=== PATIENT | male | born 2000 | race Caucasian/White ===

== ENCOUNTER 2024-02-12 11:23 | Emergency (ER) | payer OTHER, SELFPAY ==
[2024-02-12 11:23] VITALS: BMI 18.2
[2024-02-12 11:27] VITALS: BP 122/79
--- NOTE | 2024-02-12 11:28 | ED.PDOC.TRB ---
ED Provider Triage
-
24-year-old male otherwise healthy presents with a weeks worth of left-sided facial/nasal swelling. Denies any drainage. History of similar infection around the left eye that required surgery. Evaluated in triage. Consider abscess. May need
drainage. HIstory of WPW.
FUrther exam: Swollen area left maxillary area and adjacent to the left side of nose. Question abscess versus tear duct issue had similar issue in the past. CT face ordered.
[2024-02-12 11:47] LABS: % Basophils 0.4 % (0-2); % Eosinophils 1.8 % (0-6); % Immature Granulocytes 0.2 % (0-0.5); % Lymphocytes 15.5 % (20.5-51.1); % Monocytes 6.8 % (1.7-9.3); % Neutrophils 75.3 % (42.2-75.2); Absolute Eosinophils 0.2 10^3/uL (0-0.7); Absolute Lymphocytes 1.3 10^3/uL (1.2-3.4); Absolute Monocytes 0.6 10^3/uL (0.1-0.6); Absolute Neutrophils 6.2 10^3/uL (1.4-6.5); Hemoglobin 13.5 g/dL (13.0-18.0); Mean Corp Hgb Conc. 33.8 g/dL (33.0-37.0); Mean Corpuscular Hgb 33.8 pg (27.0-31.0); Mean Platelet Volume 9.5 fL (7.4-10.4); Nucleated Red Blood Cells % 0 % (-); Platelet Count 233 10^3/uL (130-400); Red Cell Dist. Width 14.2 % (11.5-14.5); White Blood Cell Count 8.2 10^3/uL (4.8-10.8)
[2024-02-12 12:00] LABS: ALT (SGPT) 11 U/L (0-50); AST (SGOT) 19 U/L (17-59); Albumin 4.4 g/dl (3.5-5.0); Alkaline Phosphatase 98 U/L (38-126); Blood Urea Nitrogen 11 mg/dl (9-20); Calcium 9.4 mg/dl (8.4-10.2); Carbon Dioxide 28 mmol/L (22-30); Chloride 103 mmol/L (98-107); Glucose 83 mg/dl (70-99); Potassium 4.7 mmol/L (3.5-5.1); Sodium 141 mmol/L (135-145); Total Bilirubin 1.4 mg/dl (0.2-1.3); Total Protein 6.8 g/dl (6.3-8.2); eGFR > 60.00
[2024-02-12 14:00] VITALS: BP 112/84
--- NOTE | 2024-02-12 14:29 | ED.GENMED ---
History of Present Illness
General
Chief Complaint: Facial Problem
Source: patient
Exam Limitations: none
Time Seen by Provider: 02/12/24 12:52
Nursing documentation reviewed up to this point in time: agreed with
History of Present Illness
History of Present Illness:
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
has had a dactrocystitis 06 07 sent to [facility], pt ended up having procedure to remove the duct but his facial swelling was much worse then
started 1 week ago in the same location just lateral to the nose and slightly extending toward the eye, no eye pain with movement
no fever/chills
no drainage
no sinus congestion
Past History
Past History
ED Past Medical History: None
Patient has exhibited threatening behavior?: No
PSI?: No
Social History
Tobacco: Vaping
Family History
Family History: Negative Early CAD
Review of Systems
Review of Systems
Allergies reviewed?: Yes
All Other Systems: Not applicable
Phy Exam
Physical Exam
Physical Exam:
GENERAL: Alert , in no apparent distress
head:
left side of the nose with fluctuant swelling/abscess 3 x 2 cm with some faint erythema extending just to the corner of the eye region
no real soft tissue swelling of the eye
EYE: pupils equal and reactive, eoms normal
NECK: Supple
ENT: o/p clr, mmm.
CARDIAC: Regular rate and rhythm .
LUNGS: Clear breath sounds bilaterally, no acute respiratory distress, no wheezes/rales/rhonchi
ABDOMEN: Soft, without focal tenderness, no r/g, no cvat, normal bowel sounds
NEUROLOGICAL: Alert and oriented, no focal neuro deficits
SKIN: Warm and dry, skin intact. erythema left facial abscess, minimal
MUSCULOSKELETAL: No edema, well perfused. neg shanna's sign
PSYCH: Normal and appropriate interaction.
Course
Orders/Labs/Results
Orders:
Orders
02/12/24 11:31
CT Facial Bones W/ Iv Contrast Urgent
Comment:
Reason For Exam: left facial swelling
02/12/24 11:35
Complete Blood Count/With Diff Urgent
Comprehensive Metabolic Panel Urgent
02/12/24 14:35
Ampicillin/Sulbactam 3 G [Unasyn] 3 gm 0.9% Sodium Chloride 100 ml [Nss] 100 ml IV NOW
02/12/24 14:53
Wound Culture [Wound/Abscess/Other Culture] Urgent
MARIO ALBERTO Source: Abscess
Specimen Description:
Date Specimen was Collected: 02/12/24
Time Specimen was Collected: 14:33
Abnormal Lab Results
02/12/24
11:35
RBC 4.00 L 10^6/uL
(4.70-6.10)
MCV 100.0 H fL
(80.0-94.0)
MCH 33.8 H pg
(27.0-31.0)
Neutrophils % 75.3 H %
(42.2-75.2)
Lymphocytes % 15.5 L %
(20.5-51.1)
Total Bilirubin 1.4 H mg/dl
(0.2-1.3)
02/12/24 11:35
02/12/24 11:35
Vital Signs
Initial and Last Documented VS:
Initial Vital Signs
Temp Pulse Resp BP Pulse Ox
97.9 F 95 18 122/79 97
02/12/24 11:27 02/12/24 11:27 02/12/24 11:27 02/12/24 11:27 02/12/24 11:27
Last Documented Vital Signs
Temp Pulse Resp BP Pulse Ox
97.9 F 81 16 112/84 99
02/12/24 11:27 02/12/24 14:00 02/12/24 14:00 02/12/24 14:00 02/12/24 14:00
Procedures
Incision/Drainage/Joint Aspiration
Left Face:
Anethesia: 1% Lidocaine with Epi
Preparation: cleaned with alcohol wipe
Type of procedure: incise
Nature of site: abscess
Description of abscess: less than 3cm
Loculations broken up: Yes
How much fluid was obtained?: small amount
Fluid description: purulent
Treatment: left open for drainage
MDM/Problems Addressed
Differential Diagnosis Includes:
cellulitis, abscess, sinusitis, preseptal cellulitis
MDM/Problems Addressed:
24 y/o M
with previous facial cellulitlis extending into the eye region [facility] [place]
here with similar area sweling lateral to his left nose with only minimal swelling this time, some overlying erythema, but no swelling extending to eye
normal eoms
exam not c/w orbital cellulitis
but he does have flucatuant facial abscess
labs appreciated, normalw bc
ct sohws cellulitis with small abscess
chronic sinusitis
pt had I&D of the lef tnostril region and large amount of pus drained
covered with bandaid
unasyn, cultured --> augmentin
*Critical Care Note
Total Time (30-74mins, 75-104mins- exclusive of procedures): Not Applicable
ED Attending Note
-
Portions of this chart may have been created with voice recognition software.� Occasional wrong word or��sound alike� substitutions may have occurred due to the inherent limitations of voice recognition software.
Discharge Plan
Departure
Patient Disposition: Home (Routine Discharge)
Date of Disposition: 02/12/24
Time of Disposition: 15:11
Patient with high blood pressure during this ER visit?: No
Condition: Fair
Covid-19: Not Applicable
Discharge Problem:
Cellulitis of face, Abscess of face
Instructions: Abscess Incision and Drainage (DC), Cellulitis (Skin Infection), Adult (DC)
Prescriptions:
New
amoxicillin-pot clavulanate 875-125 mg tablet
1 tab PO Q12H Qty: 20 0RF
Referrals:
Yris James MD [Family Provider] -
Prabhjot Caceres MD [Active] - Follow up in 1 week (ent)
Activity Restrictions/Additional Instructions:
YOUR CT SCAN SHOWED AN ABSCESS AND SOME FACIAL CELLULITIS
WE GAVE YOU A DOSE OF IV ANTIBIOTICS AND NOW YOU NEED TO TAKE AUGMENTIN STARTING TONIGHT TWICE A DAY FOR 10 DAYS
USE A PROBIOTIC WHILE ON THIS MEDICATION
APPLY WARM COMPRESSES OFF AND ON TO YOUR FACE UNTIL THE AREA HEALS
WE WILL CALL YOU IF THE ANTIBIOTICS NEED TO BE CHANGED
RETURN FOR ANY CONCERNS, LIKE EXTENSION INTO YOUR EYE, EYE PAIN FEVER, ETC
OTHERWISE SEE EAR NOSE AND THROAT, YOU MAY NEED A CYST REMOVED FROM THAT AREA.
Interventions
Interventions:
*Risk Screen - Suicide Last Done: 02/12/24 12:45
*General Assessment Last Done: 02/12/24 12:45
*Neglect/Abuse Screening Last Done: 02/12/24 12:45
ED- Fall Risk Assessment Last Done: 02/12/24 12:45
*ED COVID-19 Vaccine History Last Done: 02/12/24 12:45
*Nursing Disposition Last Done: 02/12/24 15:14
ED- Neurological Assessment Last Done: 02/12/24 12:45
ED-Skin Assessment Last Done: 02/12/24 12:45
Discharge Date and Time
Discharge Date/Time: 02/12/24 15:15
Print Language: [place] CITIZ[place]
[2024-02-12] MEDS: UNASYN IV (14:54)
== END 2024-02-12 15:15 | disposition home or self-care (01) ==
LOC: EMR 11:23
PROVIDERS: Physician Assistant; EMERGENCY PHYSICIAN Student in an Organized Health Care Education/Training Program; FAMILY PHYSICIAN Student in an Organized Health Care Education/Training Program
DX: L03.211 Cellulitis of face (principal); L02.01 Cutaneous abscess of face; J32.9 Chronic sinusitis, unspecified; F17.290 Nicotine dependence, other tobacco product, uncomplicated
CPT/HCPCS: 99284; 96365; 10060; 70487; 80053; 85025; 87070; 87205; Q9967

== ENCOUNTER 2024-05-21 17:17 | Emergency (ER) | payer OTHER, SELFPAY ==
[2024-05-21 18:00] VITALS: BP 125/74
[2024-05-21 22:06] VITALS: BP 122/86; BMI 24.5
--- NOTE | 2024-05-21 22:57 | ED.GENMED ---
History of Present Illness
General
Chief Complaint: Eye Problems
Time Seen by Provider: 05/21/24 22:52
History of Present Illness
History of Present Illness:
TIME OF INITIAL ENCOUNTER: 11 PM
HPI: Patient has history of dacryocystitis. In the past he was manage at [facility]. More recently, he was here and had a drainage performed at bedside in the emergency department as the location of the abscess was lower than typical for
dacryocystitis. He is requesting incision and drainage again. He states the clindamycin has helped him in the past.
EXAM:
GENERAL: Well appearing in no distress
HEENT: There is a rather large 3 cm x 2 cm abscess inferior to the medial canthus of the left eye with overlying erythema
NEUROLOGIC: Excellent strength all extremities, no obvious coordination deficits
PSYCHIATRIC: Appropriate mental status, normal insight and judgement
EXTREMITIES: Nontender, no edema, moves all extremities equally
SKIN: As above
NUMBER AND COMPLEXITY OF PROBLEMS ADDRESSED AT THE ENCOUNTER
� Chronic conditions affecting care: WPW
� Acute Exacerbation and/or Progression of Chronic Illness: This is an acute but recurring problem
� Differential Diagnosis includes: Beard cystitis, cellulitis, facial abscess
AMOUNT AND/OR COMPLEXITY OF DATA TO BE REVIEWED AND ANALYZED
� I performed an independent evaluation of and my interpretation is:
EKG:
CT:
X-rays:
Laboratory Studies:
Other:
� Review of other/old records: I reviewed ER notes from last 2 visits, micro wound culture grew mixed belinda
� Clinical information was obtained by an independent historian: I spoke to the brother at bedside
� Prescriptions/Medications Considered but not given:
� Further testing considered but not performed: No clear indication for imaging or lab work at this time
RISK OF COMPLICATIONS AND/OR MORBIDITY OR MORTALITY OF PATIENT MANAGEMENT
� Social determinants of health affecting care: Lives at home
� Discussion with other providers:
� Escalation of care including admission/observation vs risk of discharge considered: Incised the area of concern and a moderate pus was removed. He states what 'what we given the past' did not work therefore I used what he
states worked for him in the past which was clindamycin. I also recommended that he try Hibiclens solution when he showers.
ANY OTHER UPDATES:
Past History
Past History
ED Past Medical History: None
Patient has exhibited threatening behavior?: No
PSI?: No
Social History
Tobacco: Vaping
Family History
Family History: Negative Early CAD
Phy Exam
Physical Exam
Physical Exam:
See HPI
Course
Orders/Labs/Results
Orders:
Orders
05/21/24 23:09
Clindamycin HCl [Cleocin] 300 mg PO NOW STA
05/21/24 23:10
Wound Culture [Wound/Abscess/Other Culture] Urgent
MARIO ALBERTO Source: Abscess
Specimen Description:
Date Specimen was Collected: 05/21/24
Time Specimen was Collected: 23:12
Comment: L face
Vital Signs
Initial and Last Documented VS:
Initial Vital Signs
Temp Pulse Resp BP Pulse Ox
36.8 C 103 16 125/74 100
05/21/24 18:00 05/21/24 18:00 05/21/24 18:00 05/21/24 18:00 05/21/24 18:00
Last Documented Vital Signs
Temp Pulse Resp BP Pulse Ox
36.8 C 72 18 122/86 99
05/21/24 18:00 05/21/24 22:06 05/21/24 22:06 05/21/24 22:06 05/21/24 22:08
Procedures
Incision/Drainage/Joint Aspiration
Left Face:
Anethesia: 1% Lidocaine with Epi
Type of procedure: incise
Nature of site: abscess
Description of abscess: greater than 3cm
How much fluid was obtained?: small amount
Fluid description: purulent
Treatment: left open for drainage
Additional information:
Patient gave verbal consent to do the procedure
*Critical Care Note
Total Time (30-74mins, 75-104mins- exclusive of procedures): Not Applicable
ED Attending Note
-
Portions of this chart may have been created with voice recognition software.� Occasional wrong word or��sound alike� substitutions may have occurred due to the inherent limitations of voice recognition software.
Discharge Plan
Departure
Patient Disposition: Home (Routine Discharge)
Date of Disposition: 05/21/24
Time of Disposition: 23:10
Patient with high blood pressure during this ER visit?: Yes
Discharge Problem:
Abscess of face
Prescriptions:
New
clindamycin HCl 300 mg capsule
300 mg PO TID 7 Days Qty: 21 0RF
No Action
amoxicillin-pot clavulanate 875-125 mg tablet
1 tab PO Q12H Qty: 20 0RF
Referrals:
Yris James MD [Primary Care Provider] -
Activity Restrictions/Additional Instructions:
Next dose of antibiotics tomorrow morning. I recommend that you use chlorhexidine/Hibiclens rinse every day when you shower to help prevent infections. A wound culture is pending.
Interventions
Interventions:
*Risk Screen - Suicide Last Done: 05/21/24 22:08
*General Assessment Last Done: 05/21/24 22:08
*Neglect/Abuse Screening Last Done: 05/21/24 22:08
ED- Fall Risk Assessment Last Done: 05/21/24 22:08
*ED COVID-19 Vaccine History Last Done: 05/21/24 22:08
Discharge Date and Time
Print Language: LAO
[2024-05-21] MEDS: CLEOCIN 300 MG PO (23:18)
== END 2024-05-21 23:45 | disposition home or self-care (01) ==
LOC: EMR 17:17
PROVIDERS: EMERGENCY PHYSICIAN Emergency Medicine; PRIMARYCARE PHYSICIAN Student in an Organized Health Care Education/Training Program
DX: L02.01 Cutaneous abscess of face (principal); F17.290 Nicotine dependence, other tobacco product, uncomplicated
CPT/HCPCS: 99282; 10060; 87070; 87205

== ENCOUNTER 2024-05-25 10:54 | Emergency (ER) | payer OTHER, SELFPAY ==
[2024-05-25 10:56] VITALS: BP 123/79
--- NOTE | 2024-05-25 11:21 | ED.GENMED ---
History of Present Illness
General
Chief Complaint: Eye Problems
Time Seen by Provider: 05/25/24 11:03
History of Present Illness
History of Present Illness:
24-year-old male presents to the emergency room evaluation of a left facial abscess. Has a history of dacryocystitis in 2022 that was treated at [facility] with removal of the left medial tear duct. Has had multiple recurrent abscesses to this
location since. Denies any photophobia or vision changes. No fevers or chills. Did have I&D performed in this hospital several days ago and started on clindamycin but feels he is not improving.
Past History
Past History
ED Past Medical History: None
Patient has exhibited threatening behavior?: No
PSI?: No
Social History
Tobacco: Vaping
Family History
Family History: Negative Early CAD
Review of Systems
Review of Systems
Allergies reviewed?: Yes
All Other Systems: ROS reviewed and negative except as documented in HPI and ROS
Phy Exam
Physical Exam
Physical Exam:
GEN: Well appearing, NAD, WDWN
HEENT: Oral mucosa moist, no scleral icterus. 3 cm x 0.5 cm fluctuant abscess just medial to the medial canthus of the left eye. Extraocular motion intact, normal pupillary response to light with no pain
Cardiac: Regular rate
Lung: No respiratory distress, no tachypnea
MSK: No gross deformity or injuries
Skin: Good color, no pallor or jaundice, no rashes
Neuro: AO x3, moves all extremities freely
Psych: Calm, cooperative
Course
Orders/Labs/Results
Orders:
Orders
05/25/24 11:28
Wound Culture [Wound/Abscess/Other Culture] Urgent
MARIO ALBERTO Source: Face
Specimen Description: Left
Date Specimen was Collected: 05/25/24
Time Specimen was Collected: 11:25
Vital Signs
Initial and Last Documented VS:
Initial Vital Signs
Temp Pulse Resp BP Pulse Ox
99.0 F 86 16 123/79 98
05/25/24 10:56 05/25/24 10:56 05/25/24 10:56 05/25/24 10:56 05/25/24 10:56
Last Documented Vital Signs
Temp Pulse Resp BP Pulse Ox
99.0 F 86 16 123/79 98
05/25/24 10:56 05/25/24 10:56 05/25/24 10:56 05/25/24 10:56 05/25/24 10:56
Procedures
Incision/Drainage/Joint Aspiration
Left Face:
Anethesia: 1% Lidocaine with Epi
Preparation: cleaned with Betadine
Type of procedure: incise and drain
Nature of site: abscess
Description of abscess: greater than 3cm
Loculations broken up: Yes
How much fluid was obtained?: small amount
Fluid description: purulent and bloody
Treatment: left open for drainage
MDM/Problems Addressed
MDM/Problems Addressed:
Culture sent, will continue clindamycin until results of cultures. Good response to I&D today. No clinical signs of orbital cellulitis or retrobulbar abscess
*Critical Care Note
Total Time (30-74mins, 75-104mins- exclusive of procedures): Not Applicable
ED Attending Note
-
Portions of this chart may have been created with voice recognition software.� Occasional wrong word or��sound alike� substitutions may have occurred due to the inherent limitations of voice recognition software.
Discharge Plan
Departure
Patient Disposition: Home (Routine Discharge)
Date of Disposition: 05/25/24
Time of Disposition: 11:23
Patient with high blood pressure during this ER visit?: No
Discharge Problem:
Abscess of face
Instructions: Abscess Incision and Drainage (DC)
Prescriptions:
No Action
amoxicillin-pot clavulanate 875-125 mg tablet
1 tab PO Q12H Qty: 20 0RF
clindamycin HCl 300 mg capsule
300 mg PO TID 7 Days Qty: 21 0RF
Activity Restrictions/Additional Instructions:
Continue your antibiotics as prescribed. Will call you if the culture result warrants any change to your medication
Warm compresses and warm showers are beneficial to allow for further drainage
Interventions
Interventions:
*Risk Screen - Suicide Last Done: 05/25/24 11:13
*General Assessment Last Done: 05/25/24 11:13
*Neglect/Abuse Screening Last Done: 05/25/24 11:13
ED- Fall Risk Assessment Last Done: 05/25/24 11:13
*ED COVID-19 Vaccine History Last Done: 05/25/24 11:13
*Nursing Disposition Last Done: 05/25/24 11:40
Discharge Date and Time
Discharge Date/Time: 05/25/24 11:41
Print Language: [place]ISH
== END 2024-05-25 11:41 | disposition home or self-care (01) ==
LOC: EMR 10:54
PROVIDERS: EMERGENCY PHYSICIAN Emergency Medicine; FAMILY PHYSICIAN Student in an Organized Health Care Education/Training Program
DX: L02.01 Cutaneous abscess of face (principal); F17.290 Nicotine dependence, other tobacco product, uncomplicated
CPT/HCPCS: 99282; 10060; 87070; 87205

== ENCOUNTER 2024-06-12 15:54 | Emergency (ER) | payer OTHER, SELFPAY ==
[2024-06-12 16:07] VITALS: BP 125/83
--- NOTE | 2024-06-12 20:36 | ED.GENMED ---
History of Present Illness
<Hoang Benites DO, Resident - Last Filed: 06/12/24 21:31>
General
Chief Complaint: Skin Problem
Source: patient and records
Time Seen by Provider: 06/12/24 18:52
History of Present Illness
History of Present Illness:
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 Patient reports
he had not had any abscesses on the right side previously. Previously patient has had multiple, 5-6 recurrent abscesses of the left sided medial tear duct. Patient reports he has not followed up with [facility] for removal of a drain placed in the
left medial tear duct. Patient does report he has a follow-up with [facility] coming up this Friday. He believes this is likely the nidus for these recurrent infections he has been treated with multiple antibiotics. Previously was treated with
clindamycin, Augmentin, he completed these antibiotics and developed a abscess on the right side of his face this time. Recently his primary care provider started him on a course of oral doxycycline for this. Patient notes that his abscess is not
going away and he presented to the emergency department for a incision and drainage.
Past History
<Hoang Benites DO, Resident - Last Filed: 06/12/24 21:31>
Past History
ED Past Medical History: None
Patient has exhibited threatening behavior?: No
PSI?: No
Social History
Tobacco: Vaping
Family History
Family History: Negative Early CAD
Review of Systems
<Hoang Benites DO, Resident - Last Filed: 06/12/24 21:31>
Review of Systems
Constitutional: Reports no symptoms
EENT: Reports other (Right sided eye abscess, stinging pain. No painful eye movements, no photophobia, no pain with vision)
Respiratory: Reports no symptoms
Cardiac: Reports no symptoms
ABD/GI: Reports no symptoms
Skin: Reports no symptoms
Neurological: Reports no symptoms
Phy Exam
<Hoang Benites DO, Resident - Last Filed: 06/12/24 21:31>
General Physical Exam
General Presentation: well appearing
ENT Exam
ENT Exam: other (Red, fluctuant and mobile mass present on the right medial tear duct. )
Eye Exam
Eye Exam: conjunctiva normal, visual acuity normal and visual king normal
Cardiovascular Exam
Cardiovascular Exam: regular rate/rhythm, no edema and no murmur
Gastrointestinal Exam
Gastrointestinal Exam: non tender, soft and non distended
Skin Exam
Skin Exam: tenderness (Tenderness to palpation of right sided tear duct abscess.)
Course
<Hoang Benites DO, Resident - Last Filed: 06/12/24 21:31>
Vital Signs
Initial and Last Documented VS:
Initial Vital Signs
Temp Pulse Resp BP Pulse Ox
98.3 F 96 20 125/83 99
06/12/24 16:07 06/12/24 16:07 06/12/24 16:07 06/12/24 16:07 06/12/24 16:07
Last Documented Vital Signs
Temp Pulse Resp BP Pulse Ox
98.3 F 96 20 125/83 99
06/12/24 16:07 06/12/24 16:07 06/12/24 16:07 06/12/24 16:07 06/12/24 16:07
<Christina Mann MD - Last Filed: 06/12/24 21:29>
Vital Signs
Initial and Last Documented VS:
Initial Vital Signs
Temp Pulse Resp BP Pulse Ox
98.3 F 96 20 125/83 99
06/12/24 16:07 06/12/24 16:07 06/12/24 16:07 06/12/24 16:07 06/12/24 16:07
Last Documented Vital Signs
Temp Pulse Resp BP Pulse Ox
98.3 F 96 20 125/83 99
06/12/24 16:07 06/12/24 16:07 06/12/24 16:07 06/12/24 16:07 06/12/24 16:07
Procedures
<Hoang Benites DO, Resident - Last Filed: 06/12/24 21:31>
Incision/Drainage/Joint Aspiration
Right medial tear duct:
Anethesia: 1% Lidocaine with Epi
Preparation: cleaned with Betadine
Type of procedure: incise and drain
Nature of site: abscess
Description of abscess: less than 3cm
Loculations broken up: Yes
How much fluid was obtained?: small amount
Fluid description: purulent and serosanguinous
Treatment: packed with gauze
<Hoang Benites DO, Resident - Last Filed: 06/12/24 21:31>
MDM/Problems Addressed
Differential Diagnosis Includes:
Tear duct abscess, immune deficiency
MDM/Problems Addressed:
24-year-old male with multiple recurrent tear duct abscesses presents for recurrent abscess. Previously abscesses have been the left side, this 1 is on the right side
Patient was seen at [facility] in 2022 where he had his left medial tear duct removed and had a drain placed. Patient was supposed to follow-up with [facility] but never did. He has an appointment to follow-up with them on Friday
Multiple ED admissions for incision and drainage of abscesses
Multiple courses of antibiotics, patient was previously on clindamycin, Augmentin and most recently doxycycline. Patient completed a course of clindamycin and subsequently developed a right sided abscess. He was started on doxycycline
approximately 5 days ago per his primary care provider
Tender, fluctuant, erythematous mass present on right sided medial tear duct.
Patient has full range of motion of the eyes, no pain with eye movement, no photophobia, no change in vision. No headache, no fever, no chills
No concern for orbital cellulitis or spread to the sphenoid sinus
Incision and drainage performed emergency department. Local provided with 1% lidocaine with epi. Abscess was opened with a scalpel, pus was drained and blunt dissection was performed to break up loculations. Wound was irrigated with normal
saline. Wound was packed with gauze and left open.
Instructions were given to patient regarding proper wound care. Stressed importance of follow-up with [facility] on Friday
Discontinue doxycycline, replaced with clindamycin. Clindamycin dose 300 mg 4 times daily by mouth for 7 days. Dose was transmitted to pharmacy, instructions given to patient. Warned about risk for C. difficile and encouraged discontinuation of
clindamycin if he develops severe watery diarrhea
Stressed importance of follow-up with his primary care provider and [facility] for definitive management. Patient stable for discharge. Encouraged return if abscess returns, severe headache, pain with ocular movement
<Hoang Benites DO, Resident - Last Filed: 06/12/24 21:31>
*Critical Care Note
Total Time (30-74mins, 75-104mins- exclusive of procedures): Not Applicable
ED Attending Note
<Hoang Benites DO, Resident - Last Filed: 06/12/24 21:31>
-
Portions of this chart may have been created with voice recognition software.� Occasional wrong word or��sound alike� substitutions may have occurred due to the inherent limitations of voice recognition software.
<Christina Mann MD - Last Filed: 06/12/24 21:29>
ED Attending Note
Patient seen and examined by attending physician: Yes
I performed the substantive portion of visit, reviewed & personally made and approve the management plan that is documented in note by myself or JITENDRA.: Yes
ED Attending Note:
24-year-old male with a history of recurrent superficial abscesses in the periorbital area presents with a right infraorbital abscess that began a few days ago despite being started on doxycycline. He denies fever, chills, active drainage, visual
changes, eye discharge, or other complaints. Patient has a appoint with his progressive care manager on Friday. On exam, there is a small fluctuant area in the right infraorbital area not extending to the tarsal plate or tear duct, with associated
redness and warmth, no open area. Long discussion with patient regarding poor Optho follow-up in the past and importance of him seeing his doctor on Friday which he agrees with and promises to do. In the interim, I&D was performed which
expressed purulent discharge. Exam not consistent with septal cellulitis, EOMI, no photophobia, no pain with extraocular movements, no proptosis, no fever, etc. etc. Discussed with patient to follow-up and reasons return to the ER
Discharge Plan
Departure
Patient Disposition: Home (Routine Discharge)
Date of Disposition: 06/12/24
Time of Disposition: 21:10
Patient with high blood pressure during this ER visit?: Yes
Condition: Good
Discharge Problem:
Abscess
Instructions: Wound Care (DC), BLOOD PRESSURE, Skin Abscess
Prescriptions:
New
clindamycin HCl 300 mg capsule
300 mg PO QID 7 Days Qty: 28 0RF
No Action
amoxicillin-pot clavulanate 875-125 mg tablet
1 tab PO Q12H Qty: 20 0RF
clindamycin HCl 300 mg capsule
300 mg PO TID 7 Days Qty: 21 0RF
Referrals:
Yris James MD [Family Provider] - Call in 1-3 days for appt
Activity Restrictions/Additional Instructions:
Please follow-up with your primary care provider, call in 1 to 3 days for an appointment
Please keep your appointment at [facility] on Friday.
Instructions for wound care are provided. Please keep the incision site open to drain. It is okay if packing falls out, no need to repack
Please discontinue doxycycline. Replace it with clindamycin 300 mg 4 times a day by mouth for total of 7 days
Please return to the emergency department if your abscess returns, if you notice any pain with eye movement, any fever, severe headaches or with any concerns.
Interventions
Interventions:
*Risk Screen - Suicide Last Done: 06/12/24 16:07
*Neglect/Abuse Screening Last Done: 06/12/24 16:07
Discharge Date and Time
Print Language: BOLIVIAN
[2024-06-12 21:36] VITALS: BP 129/87
== END 2024-06-12 21:42 | disposition home or self-care (01) ==
LOC: EMR 15:54
PROVIDERS: EMERGENCY PHYSICIAN Emergency Medicine; FAMILY PHYSICIAN Student in an Organized Health Care Education/Training Program
DX: L02.01 Cutaneous abscess of face (principal); I45.6 Pre-excitation syndrome; H04.309 Unspecified dacryocystitis of unspecified lacrimal passage; F17.290 Nicotine dependence, other tobacco product, uncomplicated
CPT/HCPCS: 99282; 10060

== ENCOUNTER 2024-08-03 11:13 | Emergency (ER) | payer OTHER, SELFPAY ==
[2024-08-03 11:14] VITALS: BP 133/86
--- NOTE | 2024-08-03 12:00 | ED.GENMED ---
History of Present Illness
General
Chief Complaint: Skin Problem
Source: patient and records
Exam Limitations: none
Time Seen by Provider: 08/03/24 11:51
History of Present Illness
History of Present Illness:
24yoM with a history of dacryocystitis s/p removal of L tear duct in 2022 and recurrent facial abscesses presenting for evaluation of facial abscess. Symptoms started about 2-3 days ago. He reports pain and swelling lateral to the nose on the left
side. Symptoms are identical to his prior abscesses and he is requesting drainage. He denies any fevers, chills, or visual changes. No prior history of MRSA. He was last seen in the ED in May 2024 for similar complaints.
Past History
Past History
ED Past Medical History: None
Patient has exhibited threatening behavior?: No
PSI?: No
Social History
Tobacco: Vaping
Family History
Family History: Negative Early CAD
Phy Exam
General Physical Exam
General Presentation: well appearing and no apparent distress
General age: appears stated age
General Skin: warm and dry
General Habitus: normal
General Mental: alert
ENT Exam
ENT Exam: normocephalic and other (Acne noted throughout face. There is a focal area of swelling/erythema/fluctuance present to the left side of nose)
Neurological Exam
Neurological Exam: alert
Rosas Coma Scale
Eye Opening: Spontaneous
Verbal Response: Oriented
Motor Response: Obeys Commands
GCS Total Score: 15
Skin Exam
Skin Exam: warm/dry
Psychiatric Exam
Psychiatric Exam: normal mood/affect
Course
Orders/Labs/Results
Orders:
Orders
08/03/24 13:10
Wound Culture [Wound/Abscess/Other Culture] Urgent
MARIO ALBERTO Source: Abscess
Specimen Description:
Date Specimen was Collected: 08/03/24
Time Specimen was Collected: 13:09
Comment: face
Vital Signs
Initial and Last Documented VS:
Initial Vital Signs
Temp Pulse Resp BP Pulse Ox
98.6 F 110 16 133/86 100
08/03/24 11:14 08/03/24 11:14 08/03/24 11:14 08/03/24 11:14 08/03/24 11:14
Last Documented Vital Signs
Temp Pulse Resp BP Pulse Ox
98.6 F 110 16 133/86 100
08/03/24 11:14 08/03/24 11:14 08/03/24 11:14 08/03/24 11:14 08/03/24 11:14
Procedures
Incision/Drainage/Joint Aspiration
Left Face:
Anethesia: 1% Lidocaine with Epi
Preparation: cleaned with Betadine
Type of procedure: incise and drain
Nature of site: abscess
Description of abscess: less than 3cm
How much fluid was obtained?: large amount
Fluid description: purulent
Treatment: left open for drainage
MDM/Problems Addressed
Differential Diagnosis Includes:
24yoM here with a L facial abscess. Hx of the same as well as dacryocystitis s/p removal of tear duct. Denies f/c. Here requesting drainage. HR 110, remainder of vitals are normal. He is well-appearing in no distress. There is a focal area of
swelling and fluctuance noted to the L side of the nose. Differential diagnosis includes but is not limited to: cellulitis, abscess, dacryocystitis
I&D performed with return of a large amount of purulence. Wound culture sent. Patient stable for discharge. He was started on a course of clindamycin. Advised warm compresses and f/u with PCP. Strict ED return precautions discussed including fevers.
He expressed understanding and is in agreement with plan. He was discharged in stable condition.
*Critical Care Note
Total Time (30-74mins, 75-104mins- exclusive of procedures): Not Applicable
ED Attending Note
-
Portions of this chart may have been created with voice recognition software.� Occasional wrong word or��sound alike� substitutions may have occurred due to the inherent limitations of voice recognition software.
Discharge Plan
Departure
Patient Disposition: Home (Routine Discharge)
Date of Disposition: 08/03/24
Time of Disposition: 13:06
Patient with high blood pressure during this ER visit?: No
Discharge Problem:
Abscess of face
Instructions: Skin Abscess
Prescriptions:
New
clindamycin HCl 300 mg capsule
300 mg PO Q6H 7 Days Qty: 28 0RF
No Action
amoxicillin-pot clavulanate 875-125 mg tablet
1 tab PO Q12H Qty: 20 0RF
clindamycin HCl 300 mg capsule
300 mg PO TID 7 Days Qty: 21 0RF
clindamycin HCl 300 mg capsule
300 mg PO QID 7 Days Qty: 28 0RF
Referrals:
Yris James MD [Family Provider] -
Activity Restrictions/Additional Instructions:
Take antibiotics as prescribed. Apply warm compresses 4-6x daily.
Please follow-up with your family doctor in 2-3 days. Return to the ER with any worsening symptoms, spreading redness, fevers, or chills.
Interventions
Interventions:
*Risk Screen - Suicide Last Done: 08/03/24 11:14
*General Assessment Last Done: 08/03/24 11:14
*Neglect/Abuse Screening Last Done: 08/03/24 11:14
ED- Fall Risk Assessment Last Done: 08/03/24 13:20
*ED COVID-19 Vaccine History Last Done: 08/03/24 11:58
*Nursing Disposition Last Done: 08/03/24 13:20
ED-Skin Assessment Last Done: 08/03/24 13:20
Discharge Date and Time
Discharge Date/Time: 08/03/24 13:20
Print Language: TURKISH
== END 2024-08-03 13:20 | disposition home or self-care (01) ==
LOC: EMR 11:13
PROVIDERS: EMERGENCY PHYSICIAN Emergency Medicine; FAMILY PHYSICIAN Student in an Organized Health Care Education/Training Program
DX: L02.01 Cutaneous abscess of face (principal)
CPT/HCPCS: 10060; 99282; 87070; 87147; 87205

== ENCOUNTER 2024-10-10 18:58 | Emergency (ER) | payer OTHER, SELFPAY ==
[2024-10-10 19:06] VITALS: BP 119/78
[2024-10-10 19:28] LABS: % Basophils 0.3 % (0-2); % Eosinophils 1.3 % (0-6); % Immature Granulocytes 0.3 % (0-0.5); % Lymphocytes 20.1 % (20.5-51.1); % Monocytes 7.3 % (1.7-9.3); % Neutrophils 70.7 % (42.2-75.2); Absolute Eosinophils 0.2 10^3/uL (0-0.7); Absolute Lymphocytes 2.5 10^3/uL (1.2-3.4); Absolute Monocytes 0.9 10^3/uL (0.1-0.6); Absolute Neutrophils 8.9 10^3/uL (1.4-6.5); Hemoglobin 13.3 g/dL (13.0-18.0); Mean Corp Hgb Conc. 34.1 g/dL (33.0-37.0); Mean Corpuscular Hgb 33.3 pg (27.0-31.0); Mean Corpuscular Volume 97.7 fL (80.0-94.0); Mean Platelet Volume 9.3 fL (7.4-10.4); Nucleated Red Blood Cells % 0 % (-); Platelet Count 313 10^3/uL (130-400); Red Blood Cell Count 3.99 10^6/uL (4.70-6.10); Red Cell Dist. Width 12.8 % (11.5-14.5); White Blood Cell Count 12.6 10^3/uL (4.8-10.8)
[2024-10-10 19:42] LABS: ALT (SGPT) 10 U/L (0-50); AST (SGOT) 17 U/L (17-59); Albumin 4.3 g/dl (3.5-5.0); Alkaline Phosphatase 117 U/L (38-126); Blood Urea Nitrogen 10 mg/dl (9-20); Calcium 8.9 mg/dl (8.4-10.2); Carbon Dioxide 24 mmol/L (22-30); Chloride 104 mmol/L (98-107); Glucose 85 mg/dl (70-99); Potassium 3.8 mmol/L (3.5-5.1); Sodium 139 mmol/L (135-145); Total Bilirubin 0.8 mg/dl (0.2-1.3); eGFR > 60.00
[2024-10-10 23:34] VITALS: BP 135/86
--- NOTE | 2024-10-11 00:04 | ED.GENMED ---
History of Present Illness
General
Chief Complaint: Eye Problems
Source: patient
Exam Limitations: none
Time Seen by Provider: 10/10/24 23:12
Nursing documentation reviewed up to this point in time: agreed with
History of Present Illness
History of Present Illness:
24-year-old male presenting to the emergency department with concerns of swelling to the area just lateral to his left nasal bridge. Claims that he had infection this area multiple times in the past. Usually requires I&D and then antibiotics.
Past History
Past History
ED Past Medical History: None
Patient has exhibited threatening behavior?: No
PSI?: No
Social History
Tobacco: Vaping
Family History
Family History: Negative Early CAD
Review of Systems
Review of Systems
Allergies reviewed?: Yes
All Other Systems: ROS reviewed and negative except as documented in HPI and ROS
Phy Exam
Physical Exam
Physical Exam:
GENERAL: Alert , in no apparent distress
EYE: pupils equal and reactive
NECK: Supple, no significant adenopathy.
ENT: Swelling fluctuance induration just lateral to the left nasal bridge 2 cm in diameter. No spontaneous drainage o/p clr, mmm.
CARDIAC: Regular rate and rhythm .
LUNGS: Clear breath sounds bilaterally, no acute respiratory distress, no wheezes/rales/rhonchi
ABDOMEN: Soft, without focal tenderness, no r/g, no cvat
NEUROLOGICAL: Alert and oriented, no focal neuro deficits
SKIN: Warm and dry, skin intact.
MUSCULOSKELETAL: No edema, well perfused.
PSYCH: Normal and appropriate interaction.
Course
Orders/Labs/Results
Orders:
Orders
10/10/24 19:22
Complete Blood Count/With Diff Urgent
Comprehensive Metabolic Panel Urgent
10/11/24 00:05
Wound Culture [Wound/Abscess/Other Culture] Urgent
MARIO ALBERTO Source: Abscess
Specimen Description:
10/11/24 00:08
Cephalexin Monohydrate [Keflex] 500 mg PO NOW STA
Sulfamethox./Trimethoprim Ds [Bactrim Ds 800 mg/160 mg] 1 tablet PO NOW STA
Abnormal Lab Results
10/10/24
19:22
WBC 12.6 H 10^3/uL
(4.8-10.8)
RBC 3.99 L 10^6/uL
(4.70-6.10)
MCV 97.7 H fL
(80.0-94.0)
MCH 33.3 H pg
(27.0-31.0)
Absolute Neuts (auto) 8.9 H 10^3/uL
(1.4-6.5)
Absolute Monos (auto) 0.9 H 10^3/uL
(0.1-0.6)
Lymphocytes % 20.1 L %
(20.5-51.1)
10/10/24 19:22
10/10/24 19:22
Vital Signs
Initial and Last Documented VS:
Initial Vital Signs
Temp Pulse Resp BP Pulse Ox
99.0 F 90 17 119/78 98
10/10/24 19:06 10/10/24 19:06 10/10/24 19:06 10/10/24 19:06 10/10/24 19:06
Last Documented Vital Signs
Temp Pulse Resp BP Pulse Ox
99.0 F 82 17 135/86 97
10/10/24 19:06 10/10/24 23:34 10/10/24 19:06 10/10/24 23:34 10/10/24 23:34
Procedures
Incision/Drainage/Joint Aspiration
Left Nose:
Anethesia: 1% Lidocaine with Epi
Preparation: cleaned with alcohol wipe
Type of procedure: drain and aspiration
Nature of site: abscess
Description of abscess: less than 3cm
Loculations broken up: Yes
How much fluid was obtained?: number in mls (3)
Fluid description: purulent
Treatment: left open for drainage
MDM/Problems Addressed
MDM/Problems Addressed:
24-year-old male presenting to the emergency department today with concerns of an abscess to his face. This was drained with needle puncture. Otherwise stable for discharge started on antibiotics. Return precautions given.
*Critical Care Note
Total Time (30-74mins, 75-104mins- exclusive of procedures): Not Applicable
ED Attending Note
-
Portions of this chart may have been created with voice recognition software.� Occasional wrong word or��sound alike� substitutions may have occurred due to the inherent limitations of voice recognition software.
Discharge Plan
Departure
Patient Disposition: Home (Routine Discharge)
Date of Disposition: 10/11/24
Time of Disposition: 00:09
Patient with high blood pressure during this ER visit?: No
Condition: Good
Covid-19: Not Applicable
Discharge Problem:
Abscess of face
Instructions: Abscess incision and drainage - ED discharge instructions
Prescriptions:
New
sulfamethoxazole-trimethoprim [Bactrim DS] 800-160 mg tablet
1 tab PO BID 5 Days Qty: 10 0RF
cephalexin 500 mg capsule
500 mg PO QID 5 Days Qty: 20 0RF
No Action
amoxicillin-pot clavulanate 875-125 mg tablet
1 tab PO Q12H Qty: 20 0RF
clindamycin HCl 300 mg capsule
300 mg PO TID 7 Days Qty: 21 0RF
clindamycin HCl 300 mg capsule
300 mg PO QID 7 Days Qty: 28 0RF
clindamycin HCl 300 mg capsule
300 mg PO Q6H 7 Days Qty: 28 0RF
Referrals:
Yris James MD [Family Provider] -
Activity Restrictions/Additional Instructions:
You came to the emergency department today with concerns of an abscess to your face. This was drained here. Please take the prescribed antibiotics use warm compresses and follow-up closely with dermatology. Return for any worsening, new or
concerning symptoms.
Interventions
Interventions:
*Risk Screen - Suicide Last Done: 10/10/24 19:08
*General Assessment Last Done: 10/10/24 19:08
*Neglect/Abuse Screening Last Done: 10/10/24 19:08
*ED COVID-19 Vaccine History Last Done: 10/10/24 19:08
Discharge Date and Time
Print Language: GEORGIAN
[2024-10-11] MEDS: KEFLEX 500 MG PO (00:20)
[2024-10-11] MEDS: BACTRIM DS 800 MG/160 MG 1 TABLET PO (00:20)
== END 2024-10-11 00:24 | disposition home or self-care (01) ==
LOC: EMR 18:58
PROVIDERS: Student in an Organized Health Care Education/Training Program; EMERGENCY PHYSICIAN Emergency Medicine; FAMILY PHYSICIAN Student in an Organized Health Care Education/Training Program
DX: L02.01 Cutaneous abscess of face (principal); F17.290 Nicotine dependence, other tobacco product, uncomplicated
CPT/HCPCS: 99284; 10160; 80053; 85025; 87070; 87205